=== PATIENT | male | born 1945 | race Caucasian/White ===

== ENCOUNTER 2020-11-15 12:00 | Outpatient (RCR) | payer MEDICARE, OTHER, SELFPAY ==
[2020-11-15] MEDS: Normal Saline Flush 10 ML SYR IVP (11:27)
[2020-11-15 11:43] LABS: Abs Immature Grans 0.01 10^3/uL (0.0-0.06); Absolute Basophil Count 0.06 10^3/uL (0.0-0.2); Absolute Eosinophil Count 0.05 10^3/uL (0.0-0.7); Absolute Lymphocyte Count 1.36 10^3/uL (1.2-3.4); Absolute Neutrophil Count 2.51 10^3/uL (1.2-6.7); Basophils % 1.4; Eosinophils % 1.2; HCT 50.7 % (40.0-50.0); HGB 15.2 g/dL (13.5-17.5); Immature Grans % 0.2; Lymphocytes % 31.7; MCH 24.2 pg (27.0-33.0); MCV 80.6 fL (80-95); MPV 10.5 fL (8.0-11.0); Neutrophils % 58.5; Nucleated RBC 0 %; Platelet Count 279 10^3/uL (130-400); RBC 6.29 10^6/uL (4.36-5.78); RDW 15.2 % (11.8-14.1); RDW-SD 44.6 fL; WBC 4.29 10^3/uL (4.4-10.8)
[2020-11-15 11:45] LABS: Bilirubin Negative (Negative); Blood Negative (Negative); Clarity Clear (Clear); Glucose Negative (Negative); Ketones Negative (Negative); Leukocyte Esterase Negative (Negative); Nitrite Negative (Negative); Specific Gravity 1.015 (1.005-1.025); Urobilinogen 0.2 EU/dL (Up TO 0.2)
[2020-11-15 11:54] LABS: COMMENT (LAB VIEW ONLY) 53.04 mg/dL; Microalb ug/mg Crea 7.5 ug/mg Cr
[2020-11-15 11:55] LABS: ALT 47 U/L (16-63); AST 32 U/L (15-37); Alkaline Phosphatase 71 U/L (46-116); Anion Gap 11.4 mmol/L (3-11); BUN 26 mg/dL (7-18); Bilirubin, Total 0.4 mg/dL (0.2-1.0); CO2 24.6 mmol/L (21.0-32.0); CREATININE 1.5 mg/dL (0.70-1.30); Calcium 9.9 mg/dL (8.5-10.1); Chloride 107 mmol/L (98-107); Estimated GFR 45.62 (mL/min/1.73m2); Glucose 105 mg/dL (74-106); PHOSPHORUS 3.3 mg/dL (2.6-4.7); Potassium 4.4 mmol/L (3.5-5.1); Sodium 143 mmol/L (136-145); Total Protein 7.7 g/dL (6.4-8.2)
[2020-11-15 12:02] LABS: Hemoglobin A1C 5.7 % (<5.7)
[2020-11-15 12:26] LABS: Ferritin 15 ng/mL (26-388)
== END 2020-12-10 23:59 | disposition home or self-care (01) ==
LOC: INF 12:00
PROVIDERS: PCP Student in an Organized Health Care Education/Training Program; Visit Provider Internal Medicine
DX: N18.31 Chronic kidney disease, stage 3a (principal); D45 Polycythemia vera; E88.1 Lipodystrophy, not elsewhere classified; R79.89 Other specified abnormal findings of blood chemistry
CPT/HCPCS: 36415; 80053; 99195; 81003; 82043; 82570; 82728; 83036; 84100; 85025

== ENCOUNTER 2021-01-10 13:30 | Outpatient (RCR) | payer MEDICARE, OTHER, SELFPAY ==
[2020-12-13 12:50] LABS: HGB 14.4 g/dL (13.5-17.5); MCH 23.2 pg (27.0-33.0); MCHC 29.7 % (32.0-36.0); MCV 78.2 fL (80-95); MPV 10.9 fL (8.0-11.0); Platelet Count 296 10^3/uL (130-400); RDW 15.1 % (11.8-14.1); WBC 3.23 10^3/uL (4.4-10.8)
[2020-12-13 12:54] LABS: HCT 48.5 % (40.0-50.0)
[2020-12-13 12:58] LABS: ALT 41 U/L (16-63); AST 28 U/L (15-37); Alkaline Phosphatase 65 U/L (46-116); BUN 21 mg/dL (7-18); Bilirubin, Total 0.6 mg/dL (0.2-1.0); CREATININE 1.3 mg/dL (0.70-1.30); Calcium 9.8 mg/dL (8.5-10.1); Chloride 108 mmol/L (98-107); Estimated GFR 53.82 (mL/min/1.73m2); Glucose 97 mg/dL (74-106); Potassium 4.2 mmol/L (3.5-5.1); Sodium 143 mmol/L (136-145); Total Protein 7.6 g/dL (6.4-8.2)
[2020-12-13 13:41] LABS: Ferritin 15 ng/mL (26-388)
[2021-01-10 13:50] LABS: HCT 46.8 % (40.0-50.0); HGB 13.8 g/dL (13.5-17.5); MCH 22.5 pg (27.0-33.0); MCHC 29.5 % (32.0-36.0); MCV 76.5 fL (80-95); MPV 10.7 fL (8.0-11.0); Platelet Count 335 10^3/uL (130-400); RBC 6.12 10^6/uL (4.36-5.78); RDW 15.5 % (11.8-14.1); RDW-SD 42.2 fL; WBC 3.82 10^3/uL (4.4-10.8)
[2021-01-10 14:23] LABS: ALT 49 U/L (16-63); AST 24 U/L (15-37); Alkaline Phosphatase 73 U/L (46-116); Anion Gap 10.6 mmol/L (3-11); BUN 23 mg/dL (7-18); Bilirubin, Total 0.3 mg/dL (0.2-1.0); CO2 25.4 mmol/L (21.0-32.0); CREATININE 1.6 mg/dL (0.70-1.30); Calcium 9.5 mg/dL (8.5-10.1); Chloride 105 mmol/L (98-107); Estimated GFR 42.35 (mL/min/1.73m2); Ferritin 13 ng/mL (26-388); Glucose 95 mg/dL (74-106); Potassium 4.5 mmol/L (3.5-5.1); Sodium 141 mmol/L (136-145); Total Protein 7.6 g/dL (6.4-8.2)
== END 2021-01-10 23:59 | disposition home or self-care (01) ==
LOC: INF 13:30
PROVIDERS: PCP Student in an Organized Health Care Education/Training Program; Visit Provider Internal Medicine
DX: D45 Polycythemia vera (principal)
CPT/HCPCS: 36415; 80053; 85027; 99195; 82728

== ENCOUNTER 2021-02-07 03:10 | Outpatient (RCR) | payer MEDICARE, OTHER, SELFPAY ==
[2021-02-07 12:09] LABS: HGB 14.1 g/dL (13.5-17.5); MCH 21.9 pg (27.0-33.0); MCHC 29.4 % (32.0-36.0); MCV 74.7 fL (80-95); MPV 10.5 fL (8.0-11.0); Platelet Count 349 10^3/uL (130-400); RBC 6.43 10^6/uL (4.36-5.78); RDW 17.2 % (11.8-14.1); RDW-SD 42.8 fL; WBC 4.04 10^3/uL (4.4-10.8)
[2021-02-07 12:33] LABS: ALT 44 U/L (16-63); AST 27 U/L (15-37); Alkaline Phosphatase 66 U/L (46-116); Anion Gap 8.6 mmol/L (3-11); BUN 30 mg/dL (7-18); Bilirubin, Total 0.5 mg/dL (0.2-1.0); CO2 27.4 mmol/L (21.0-32.0); CREATININE 1.6 mg/dL (0.70-1.30); Calcium 9.7 mg/dL (8.5-10.1); Chloride 107 mmol/L (98-107); Estimated GFR 42.35 (mL/min/1.73m2); Ferritin 16 ng/mL (26-388); Glucose 91 mg/dL (74-106); Potassium 4.4 mmol/L (3.5-5.1); Sodium 143 mmol/L (136-145); Total Protein 7.7 g/dL (6.4-8.2)
== END 2021-02-09 23:59 | disposition home or self-care (01) ==
LOC: INF 03:10
PROVIDERS: PCP Student in an Organized Health Care Education/Training Program; Visit Provider Internal Medicine
DX: D45 Polycythemia vera (principal)
CPT/HCPCS: 36415; 80053; 85027; 82728

== ENCOUNTER 2021-11-22 02:20 | Outpatient (RCR) | payer MEDICARE, OTHER, SELFPAY ==
[2021-11-22 13:00] LABS: HGB 16.2 g/dL (13.5-17.5); MCH 24.7 pg (27.0-33.0); MCHC 30.4 % (32.0-36.0); MCV 81 fL (80-95); MPV 10.6 fL (8.0-11.0); Platelet Count 319 10^3/uL (130-400); RBC 6.57 10^6/uL (4.36-5.78); RDW 17.3 % (11.8-14.1); RDW-SD 47.1 fL; WBC 4.08 10^3/uL (4.4-10.8)
[2021-11-22 13:13] LABS: HCT 53.3 % (40.0-50.0)
[2021-11-22 13:27] LABS: ALT 39 U/L (16-63); AST 28 U/L (15-37); Albumin 3.9 g/dL (3.4-5.0); Alkaline Phosphatase 69 U/L (46-116); BUN 26 mg/dL (7-18); Bilirubin, Total 0.6 mg/dL (0.2-1.0); CREATININE 1.4 mg/dL (0.70-1.30); Calcium 9.4 mg/dL (8.5-10.1); Chloride 105 mmol/L (98-107); Estimated GFR 49.27 (mL/min/1.73m2); Glucose 101 mg/dL (74-106); Potassium 4.1 mmol/L (3.5-5.1); Sodium 142 mmol/L (136-145); Total Protein 7.6 g/dL (6.4-8.2)
[2021-11-22 13:29] LABS: Ferritin 20 ng/mL (26-388)
[2021-11-22 13:45] LABS: Abs Immature Grans 0.02 10^3/uL (0.0-0.06); Absolute Basophil Count 0.06 10^3/uL (0.0-0.2); Absolute Eosinophil Count 0.04 10^3/uL (0.0-0.7); Absolute Lymphocyte Count 1.29 10^3/uL (1.2-3.4); Absolute Monocyte Count 0.38 10^3/uL (0.1-0.8); Absolute Neutrophil Count 2.25 10^3/uL (1.2-6.7); Basophils % 1.5; Immature Grans % 0.5; Lymphocytes % 31.9; Monocytes % 9.4; Neutrophils % 55.7
== END 2021-12-10 23:59 | disposition home or self-care (01) ==
LOC: INF 02:20
PROVIDERS: Nurse Practitioner Adult Health; PCP Student in an Organized Health Care Education/Training Program; Visit Provider Nurse Practitioner Acute Care
DX: D45 Polycythemia vera (principal)
CPT/HCPCS: 36415; 80053; 85027; 99195; 82728; 85007

== ENCOUNTER 2021-12-20 02:39 | Outpatient (RCR) | payer MEDICARE, OTHER, SELFPAY ==
[2021-12-20 13:11] LABS: HCT 51.8 % (40.0-50.0); HGB 15.7 g/dL (13.5-17.5); MCH 24.3 pg (27.0-33.0); MCHC 30.3 % (32.0-36.0); MCV 80 fL (80-95); MPV 10.6 fL (8.0-11.0); Platelet Count 329 10^3/uL (130-400); RBC 6.47 10^6/uL (4.36-5.78); RDW 15.9 % (11.8-14.1); RDW-SD 43.6 fL; WBC 3.68 10^3/uL (4.4-10.8)
[2021-12-20 13:37] LABS: ALT 41 U/L (16-63); AST 31 U/L (15-37); Albumin 3.9 g/dL (3.4-5.0); Alkaline Phosphatase 65 U/L (46-116); Anion Gap 10.5 mmol/L (3-11); BUN 22 mg/dL (7-18); Bilirubin, Total 0.5 mg/dL (0.2-1.0); CO2 24.5 mmol/L (21.0-32.0); CREATININE 1.3 mg/dL (0.70-1.30); Calcium 9.4 mg/dL (8.5-10.1); Chloride 108 mmol/L (98-107); Estimated GFR 53.67 (mL/min/1.73m2); Ferritin 19 ng/mL (26-388); Glucose 106 mg/dL (74-106); Potassium 4.2 mmol/L (3.5-5.1); Sodium 143 mmol/L (136-145); Total Protein 7.4 g/dL (6.4-8.2)
[2021-12-20 14:15] VITALS: BP 127/69; PULSE 79
== END 2022-01-10 23:59 | disposition home or self-care (01) ==
LOC: INF 02:39
PROVIDERS: PCP Student in an Organized Health Care Education/Training Program; Visit Provider Nurse Practitioner Acute Care
DX: D45 Polycythemia vera (principal)
CPT/HCPCS: 36415; 80053; 85027; 99195; 82728

== ENCOUNTER 2022-01-17 03:57 | Outpatient (RCR) | payer MEDICARE, OTHER, SELFPAY ==
[2022-01-11 00:05] VITALS: BP 127/69; PULSE 79
[2022-01-17] MEDS: Normal Saline Flush 10 ML SYR IVP (13:03)
[2022-01-17 13:16] LABS: HCT 47.7 % (40.0-50.0); HGB 14.6 g/dL (13.5-17.5); MCH 24.2 pg (27.0-33.0); MCHC 30.6 % (32.0-36.0); MCV 79 fL (80-95); MPV 10.2 fL (8.0-11.0); Platelet Count 337 10^3/uL (130-400); RBC 6.04 10^6/uL (4.36-5.78); RDW 15.4 % (11.8-14.1); RDW-SD 43.1 fL; WBC 3.27 10^3/uL (4.4-10.8)
[2022-01-17 13:41] LABS: ALT 34 U/L (16-63); AST 23 U/L (15-37); Albumin 3.8 g/dL (3.4-5.0); Alkaline Phosphatase 62 U/L (46-116); Anion Gap 10.7 mmol/L (3-11); BUN 20 mg/dL (7-18); Bilirubin, Total 0.5 mg/dL (0.2-1.0); CO2 25.3 mmol/L (21.0-32.0); CREATININE 1.4 mg/dL (0.70-1.30); Calcium 9.4 mg/dL (8.5-10.1); Chloride 106 mmol/L (98-107); Estimated GFR 52.09 (mL/min/1.73m2); Ferritin 15 ng/mL (26-388); Glucose 110 mg/dL (74-106); Sodium 142 mmol/L (136-145); Total Protein 7.6 g/dL (6.4-8.2)
== END 2022-02-09 23:59 | disposition home or self-care (01) ==
LOC: INF 03:57
PROVIDERS: PCP Student in an Organized Health Care Education/Training Program; Visit Provider Nurse Practitioner Acute Care
DX: D45 Polycythemia vera (principal)
CPT/HCPCS: 36415; 80053; 85027; 99195; 82728

== ENCOUNTER 2022-02-16 01:07 | Outpatient (RCR) | payer MEDICARE, OTHER, SELFPAY ==
[2022-02-10 00:05] VITALS: BP 127/69; PULSE 79
[2022-02-16 11:30] LABS: HCT 48.4 % (40.0-50.0); HGB 14.4 g/dL (13.5-17.5); MCH 23.2 pg (27.0-33.0); MCHC 29.8 % (32.0-36.0); MCV 78 fL (80-95); MPV 10.6 fL (8.0-11.0); Platelet Count 293 10^3/uL (130-400); RBC 6.21 10^6/uL (4.36-5.78); RDW 17.2 % (11.8-14.1); RDW-SD 44.1 fL
[2022-02-16 11:58] LABS: ALT 39 U/L (16-63); AST 27 U/L (15-37); Albumin 3.7 g/dL (3.4-5.0); Alkaline Phosphatase 65 U/L (46-116); Anion Gap 8.9 mmol/L (3-11); BUN 23 mg/dL (7-18); Bilirubin, Total 0.6 mg/dL (0.2-1.0); CO2 26.1 mmol/L (21.0-32.0); CREATININE 1.4 mg/dL (0.70-1.30); Calcium 9.5 mg/dL (8.5-10.1); Chloride 107 mmol/L (98-107); Estimated GFR 52.09 (mL/min/1.73m2); Ferritin 18 ng/mL (26-388); Glucose 101 mg/dL (74-106); Potassium 4.2 mmol/L (3.5-5.1); Sodium 142 mmol/L (136-145); Total Protein 7.1 g/dL (6.4-8.2)
== END 2022-03-12 23:59 | disposition home or self-care (01) ==
LOC: INF 01:07
PROVIDERS: PCP Student in an Organized Health Care Education/Training Program; Visit Provider Nurse Practitioner Acute Care
DX: D45 Polycythemia vera (principal)
CPT/HCPCS: 36415; 80053; 85027; 82728

== ENCOUNTER 2022-11-16 01:32 | Outpatient (RCR) | payer MEDICARE, OTHER, SELFPAY ==
[2022-11-16] MEDS: Normal Saline Flush 10 ML SYR IVP (13:13)
[2022-11-16 13:31] LABS: Abs Immature Grans 0.01 10^3/uL (0.0-0.06); Absolute Basophil Count 0.07 10^3/uL (0.0-0.2); Absolute Eosinophil Count 0.07 10^3/uL (0.0-0.7); Absolute Lymphocyte Count 1.28 10^3/uL (1.2-3.4); Absolute Monocyte Count 0.37 10^3/uL (0.1-0.8); Absolute Neutrophil Count 2.36 10^3/uL (1.2-6.7); Basophils % 1.7; Eosinophils % 1.7; HCT 53.7 % (40.0-50.0); HGB 16.7 g/dL (13.5-17.5); Immature Grans % 0.2; Lymphocytes % 30.8; MCH 25.3 pg (27.0-33.0); MCHC 31.1 % (32.0-36.0); MCV 82 fL (80-95); MPV 10.1 fL (8.0-11.0); Monocytes % 8.9; Neutrophils % 56.7; Platelet Count 303 10^3/uL (130-400); RBC 6.59 10^6/uL (4.36-5.78); RDW 18.4 % (11.8-14.1); RDW-SD 49.9 fL; WBC 4.16 10^3/uL (4.4-10.8)
[2022-11-16 14:05] LABS: Ferritin 17 ng/mL (26-388)
== END 2022-12-10 23:59 | disposition home or self-care (01) ==
LOC: INF 01:32
PROVIDERS: PCP Student in an Organized Health Care Education/Training Program; Visit Provider Nurse Practitioner Adult Health
DX: D45 Polycythemia vera (principal)
CPT/HCPCS: 36415; 99195; 82728; 85025

== ENCOUNTER 2022-12-14 01:00 | Outpatient (RCR) | payer MEDICARE, OTHER, SELFPAY ==
[2022-12-14 13:00] LABS: HCT 51.7 % (40.0-50.0); MCH 24.8 pg (27.0-33.0); MCHC 30.9 % (32.0-36.0); MCV 80 fL (80-95); MPV 10.3 fL (8.0-11.0); Platelet Count 345 10^3/uL (130-400); RBC 6.45 10^6/uL (4.36-5.78); RDW 16.2 % (11.8-14.1); RDW-SD 44.8 fL; WBC 4.43 10^3/uL (4.4-10.8)
[2022-12-14 13:43] LABS: Ferritin 15 ng/mL (26-388)
== END 2023-01-10 23:59 | disposition home or self-care (01) ==
LOC: INF 01:00
PROVIDERS: PCP Student in an Organized Health Care Education/Training Program; Visit Provider Nurse Practitioner Adult Health
DX: D45 Polycythemia vera (principal)
CPT/HCPCS: 36415; 85027; 99195; 82728

== ENCOUNTER 2023-01-11 02:18 | Outpatient (RCR) | payer MEDICARE, OTHER, SELFPAY ==
[2023-01-11 12:49] LABS: HCT 50.1 % (40.0-50.0); HGB 15.7 g/dL (13.5-17.5); MCH 24.6 pg (27.0-33.0); MCHC 31.3 % (32.0-36.0); MCV 79 fL (80-95); MPV 10.6 fL (8.0-11.0); Platelet Count 317 10^3/uL (130-400); RBC 6.38 10^6/uL (4.36-5.78); RDW 16.1 % (11.8-14.1); RDW-SD 42.7 fL; WBC 3.97 10^3/uL (4.4-10.8)
[2023-01-11 13:12] LABS: Ferritin 14 ng/mL (26-388)
[2023-01-11] MEDS: Normal Saline Flush 10 ML SYR IVP (14:38)
== END 2023-02-09 23:59 | disposition home or self-care (01) ==
LOC: INF 02:18
PROVIDERS: PCP Student in an Organized Health Care Education/Training Program; Visit Provider Nurse Practitioner Adult Health
DX: D45 Polycythemia vera (principal)
CPT/HCPCS: 36415; 85027; 99195; 82728

== ENCOUNTER 2023-02-15 01:45 | Outpatient (RCR) | payer MEDICARE, OTHER, SELFPAY ==
[2023-02-15] MEDS: Normal Saline Flush 10 ML SYR IVP (10:54)
[2023-02-15 10:59] LABS: HCT 51.2 % (40.0-50.0); HGB 15.6 g/dL (13.5-17.5); MCH 23.6 pg (27.0-33.0); MCHC 30.5 % (32.0-36.0); MCV 77 fL (80-95); MPV 10.7 fL (8.0-11.0); Platelet Count 342 10^3/uL (130-400); RBC 6.62 10^6/uL (4.36-5.78); RDW 16.8 % (11.8-14.1); RDW-SD 42.7 fL; WBC 3.76 10^3/uL (4.4-10.8)
[2023-02-15 11:52] LABS: Ferritin 18 ng/mL (26-388)
== END 2023-03-12 23:59 | disposition home or self-care (01) ==
LOC: INF 01:45
PROVIDERS: PCP Student in an Organized Health Care Education/Training Program; Visit Provider Nurse Practitioner Adult Health
DX: D45 Polycythemia vera (principal)
CPT/HCPCS: 36415; 85027; 99195; 82728

== ENCOUNTER 2023-11-28 02:11 | Outpatient (RCR) | payer MEDICARE, OTHER, SELFPAY ==
[2023-11-28 11:57] LABS: Abs Immature Grans 0.03 10^3/uL (0.0-0.06); Absolute Basophil Count 0.06 10^3/uL (0.0-0.2); Absolute Eosinophil Count 0.04 10^3/uL (0.0-0.7); Absolute Lymphocyte Count 1.12 10^3/uL (1.2-3.4); Absolute Monocyte Count 0.33 10^3/uL (0.1-0.8); Absolute Neutrophil Count 2.36 10^3/uL (1.2-6.7); Basophils % 1.5 %; HCT 51.1 % (40.0-50.0); HGB 16.3 g/dL (13.5-17.5); Immature Grans % 0.8 %; Lymphocytes % 28.4 %; MCH 27.5 pg (27.0-33.0); MCHC 31.9 % (32.0-36.0); MCV 86 fL (80-95); MPV 10.6 fL (8.0-11.0); Monocytes % 8.4 %; Neutrophils % 59.9 %; Platelet Count 368 10^3/uL (130-400); RBC 5.92 10^6/uL (4.36-5.78); RDW 15.4 % (11.8-14.1); RDW-SD 47.9 fL; WBC 3.94 10^3/uL (4.4-10.8)
== END 2023-12-11 23:59 | disposition home or self-care (01) ==
LOC: INF 02:11
PROVIDERS: Nurse Practitioner Adult Health; PCP Student in an Organized Health Care Education/Training Program; Visit Provider Internal Medicine Hematology
DX: D45 Polycythemia vera (principal)
CPT/HCPCS: 36415; 85025

== ENCOUNTER 2023-12-25 03:24 | Outpatient (CLI) | payer MEDICARE, OTHER, SELFPAY ==
[2023-12-25 15:18] LABS: Abs Immature Grans 0.02 10^3/uL (0.0-0.06); Absolute Basophil Count 0.08 10^3/uL (0.0-0.2); Absolute Eosinophil Count 0.05 10^3/uL (0.0-0.7); Absolute Lymphocyte Count 1.34 10^3/uL (1.2-3.4); Absolute Monocyte Count 0.33 10^3/uL (0.1-0.8); Absolute Neutrophil Count 2.64 10^3/uL (1.2-6.7); Basophils % 1.8 %; Eosinophils % 1.1 %; HCT 53.2 % (40.0-50.0); HGB 17.1 g/dL (13.5-17.5); Immature Grans % 0.4 %; MCH 28.1 pg (27.0-33.0); MCHC 32.1 % (32.0-36.0); MCV 87 fL (80-95); MPV 10.8 fL (8.0-11.0); Monocytes % 7.4 %; Neutrophils % 59.3 %; Platelet Count 377 10^3/uL (130-400); RBC 6.09 10^6/uL (4.36-5.78); RDW 15.8 % (11.8-14.1); RDW-SD 49.3 fL; WBC 4.46 10^3/uL (4.4-10.8)
== END 2023-12-25 03:25 | disposition home or self-care (01) ==
LOC: LBO 03:24
PROVIDERS: PCP Student in an Organized Health Care Education/Training Program; Visit Provider Nurse Practitioner Adult Health
DX: D45 Polycythemia vera (principal)
CPT/HCPCS: 36415; 85025

== ENCOUNTER 2024-01-23 03:30 | Outpatient (CLI) | payer MEDICARE, OTHER, SELFPAY ==
[2024-01-23 10:23] LABS: Abs Immature Grans 0.04 10^3/uL (0.0-0.06); Absolute Basophil Count 0.06 10^3/uL (0.0-0.2); Absolute Eosinophil Count 0.07 10^3/uL (0.0-0.7); Absolute Lymphocyte Count 1.24 10^3/uL (1.2-3.4); Absolute Monocyte Count 0.31 10^3/uL (0.1-0.8); Absolute Neutrophil Count 3.05 10^3/uL (1.2-6.7); Basophils % 1.3 %; Eosinophils % 1.5 %; HCT 52.4 % (40.0-50.0); HGB 16.7 g/dL (13.5-17.5); Immature Grans % 0.8 %; MCH 28.1 pg (27.0-33.0); MCHC 31.9 % (32.0-36.0); MCV 88 fL (80-95); MPV 10.8 fL (8.0-11.0); Monocytes % 6.5 %; Neutrophils % 63.9 %; Platelet Count 336 10^3/uL (130-400); RBC 5.94 10^6/uL (4.36-5.78); RDW 17.1 % (11.8-14.1); RDW-SD 53.6 fL; WBC 4.77 10^3/uL (4.4-10.8)
== END 2024-01-23 03:31 | disposition home or self-care (01) ==
LOC: LBO 03:30
PROVIDERS: PCP Student in an Organized Health Care Education/Training Program; Visit Provider Nurse Practitioner Adult Health
DX: D45 Polycythemia vera (principal)
CPT/HCPCS: 36415; 85025

== ENCOUNTER 2024-02-17 02:56 | Outpatient (CLI) | payer MEDICARE, OTHER, SELFPAY ==
[2024-02-17 15:18] LABS: Abs Immature Grans 0.04 10^3/uL (0.0-0.06); Absolute Basophil Count 0.09 10^3/uL (0.0-0.2); Absolute Eosinophil Count 0.04 10^3/uL (0.0-0.7); Absolute Lymphocyte Count 1.12 10^3/uL (1.2-3.4); Absolute Monocyte Count 0.35 10^3/uL (0.1-0.8); Basophils % 1.9 %; Eosinophils % 0.8 %; HCT 51.5 % (40.0-50.0); Immature Grans % 0.8 %; Lymphocytes % 23.1 %; MCH 28.9 pg (27.0-33.0); MCV 88 fL (80-95); MPV 10.5 fL (8.0-11.0); Monocytes % 7.2 %; Neutrophils % 66.2 %; Platelet Count 362 10^3/uL (130-400); RBC 5.88 10^6/uL (4.36-5.78); RDW 15.9 % (11.8-14.1); RDW-SD 51.3 fL; WBC 4.84 10^3/uL (4.4-10.8)
[2024-02-17 15:20] LABS: Bilirubin Negative (Negative); Blood Negative (Negative); Clarity Clear (Clear); Glucose Negative (Negative); Ketones Negative (Negative); Leukocyte Esterase Negative (Negative); Nitrite Negative (Negative); pH 5.5 (5-8)
[2024-02-17 16:41] LABS: ALT 29 U/L (16-63); AST 24 U/L (15-37); Alkaline Phosphatase 66 U/L (46-116); Anion Gap 10.7 mmol/L (3-11); BUN 21 mg/dL (7-18); Bilirubin, Total 0.65 mg/dL (0.2-1.0); CO2 25.3 mmol/L (21.0-32.0); CREATININE 1.4 mg/dL (0.70-1.30); Calcium 9.8 mg/dL (8.5-10.1); Calculated LDL 75 mg/dL (<100); Chloride 109 mmol/L (98-107); Cholesterol 189 mg/dL (<200); Estimated GFR 51.45 (mL/min/1.73m2); Glucose 101 mg/dL (74-106); HDL Cholesterol 45 mg/dL (40-60); Potassium 4.2 mmol/L (3.5-5.1); Sodium 145 mmol/L (136-145); Total Protein 7.7 g/dL (6.4-8.2); Triglyceride 349 mg/dL (<150)
[2024-02-17 17:12] LABS: Ferritin 33 ng/mL (26-388)
[2024-02-18 15:16] LABS: 4/8 Ratio 0.95 (>=0.90); Absolute CD3 1127 Cells/uL (840-2669); Absolute CD8 550 Cells/uL (154-1097); CD3 85 % (56-84); CD4 39 % (31-64); CD8 41 % (9-39)
== END 2024-02-17 02:57 | disposition home or self-care (01) ==
LOC: LBO 02:56
PROVIDERS: Internal Medicine; PCP Student in an Organized Health Care Education/Training Program; Visit Provider Nurse Practitioner Adult Health
DX: D45 Polycythemia vera; B20 Human immunodeficiency virus [HIV] disease; E78.5 Hyperlipidemia, unspecified
CPT/HCPCS: 36415; 80053; 80061; 87389; 87536; 81003; 82728; 85025; 86359; 86360

== ENCOUNTER 2024-02-18 02:49 | Outpatient (RCR) | payer MEDICARE, OTHER, SELFPAY ==
[2024-02-20 12:29] LABS: HIV 1 RNA Qualitative Undetected Copys/mL (Undetected)
== END 2024-03-12 23:59 | disposition home or self-care (01) ==
LOC: INF 02:49
PROVIDERS: Internal Medicine; PCP Student in an Organized Health Care Education/Training Program; Visit Provider Nurse Practitioner Adult Health
DX: B20 Human immunodeficiency virus [HIV] disease; D45 Polycythemia vera
CPT/HCPCS: 36415; 87536; 99195